=== PATIENT | female | born 2000 | race Caucasian/White ===

== ENCOUNTER 2023-08-10 10:43 | Emergency (ER) | payer OTHER, SELFPAY ==
--- NOTE | ~2023-08-10 | CT_ITS ---
Non-contrast CT scan of the Abdomen and Pelvis Clinical indication: Hematuria Technique: 2.5 mm axial scans were obtained through the abdomen and pelvis without intravenous or or al contrast. Dose reduction technique was used on this scan by utilizing automated exposure control a nd iterative reconstruction technique. The dose-length product (DLP) was 275.38 mGy-cm. Findings: Images through the lung bases reveal no abnormalities. There is no evidence of renal or ureteral calculi. The kidneys and the ureters are nondilated. The liver, spleen, pancreas, gallbladder, and adrenals appear normal. There is no aortic aneurysm. There is no evidence of bowel obstruction. Images through the pelvis were performed. There is no evidence of ascites or lymphadenopathy. Urinary bladder unremarkable. No adnexal mass seen. Impression: Unremarkable exam. Reviewed, dictated and finalized at [facility]. [employer] Impression: Unremarkable exam.
[2023-08-10 10:47] VITALS: BP 109/76; PULSE 111; RESP 18; TEMP 36.3; O2SAT 100
[2023-08-10 11:14] LABS: Basophils Percent Auto 0.3 % (0.2-1.2); Hematocrit 41.9 % (37.0-47.0); Hemoglobin 14.1 g/dL (12.0-15.0); Immature Granulocyte Absolute 0.04 K/mm3 (0.00-0.031); Immature Granulocyte Percent A 0.3 % (0-0.5); Lymphocytes Absolute Auto 1.71 K/mm3 (0.9-3.2); Lymphocytes Percent Auto 13.2 % (18.3-44.2); Mean Corpuscular HGB Conc 33.7 g/dl (32-36); Mean Corpuscular Hemoglobin 30.3 pg (26-34); Mean Corpuscular Volume 90.1 fl (80-100); Monocytes Absolute Auto 0.8 K/mm3 (0.1-0.6); Monocytes Percent Auto 6.3 % (2.6-8.5); Neutrophils Absolute Auto 10.4 K/mm3 (1.3-6.7); Neutrophils Percent Auto 79.9 % (45.5-73.1); Platelet Count Result 218 k/mm3 (150-375); Red Blood Count 4.65 M/mm3 (4.2-5.4); Red Cell Distribution Width 11.8 % (11.5-14.5)
[2023-08-10 11:24] LABS: Alanine Aminotransferase 31 U/L (6-35); Albumin Level 5.1 g/dL (3.5-5.1); Alkaline Phosphatase 59 U/L (38-126); Anion Gap 16 mmol/L (8-16); Appearance Urine Clear (Clear); Aspartate Amino Transferase 35 U/L (14-36); Bacteria Urine None Seen /hpf; Bilirubin Urine Negative (Negative); Bilirubin,Total 1.8 mg/dL (0.2-1.3); Blood Urea Nitrogen 12 mg/dL (7-17); Blood Urine 1+ (Negative); Calcium 10.1 mg/dL (8.4-10.2); Carbon Dioxide 21 mmol/L (22-30); Chloride 98 mmol/L (98-107); Color Urine Dark Yellow (Yellow); Estimated CRCL calculation 90 ml/min; Estimated Glomerular Filt Rate > 60; Glucose 90 mg/dL (65-110); Glucose Urine UA Negative (Negative); Ketones Urine 4+ mg/dL (Negative); Leukocyte Esterase Ur Negative LEU/UL (Negative); Lipase 144 U/L (23-300); Nitrate Urine Negative (Negative); Non Pathogenic Casts 0-2; Potassium 3.8 mmol/L (3.4-5.0); Protein Urine 1+ mg/dL (Negative); Sodium 135 mmol/L (137-145); Specific Grav Ur 1.031 (1.001-1.035); Squamous Epithelial Cell Urine None seen /hpf (Few); WBC Urine 0-5 /hpf; pH Urine 5.5 (5.0-9.0)
[2023-08-10 11:30] LABS: Add Urine Microscopic? YES
[2023-08-10 12:40] VITALS: BP 123/76; PULSE 91; RESP 17; O2SAT 100
--- NOTE | 2023-08-10 13:03 | ED.GENADULT ---
HPI - General Adult General Chief complaint: Nausea/Vomiting/Diarrhea Stated complaint: vomiting Time Seen by Provider: 08/10/23 11:44 History of Present Illness HPI narrative: 23-year-old female presenting to the emergency department for evaluation of nausea vomiting without diarrhea. Patient reports symptoms started a few days ago and have been persistent. patient does describe some lower abdominal pain but denies any pain with urination. Patient denies any vaginal bleeding or vaginal discharge. Related Data Allergies Allergy/AdvReac Type Severity Reaction Status Date / Time codeine AdvReac Unknown Verified 08/10/23 13:06 Review of Systems Review of Systems: All systems reviewed & are unremarkable except as noted in HPI and below Exam Narrative: APPEARANCE: Well appearing, no pain, no distress, well-nourished. HEAD: normocephalic, atraumatic. EYES: PERRLA/EOMI, conjunctivae clear. NOSE: Normal no drainage EARS:TMS clear with good light reflex. THROAT: Pharynx clear, no exudate. NECK: Supple. No adenopathy, no masses. RESPIRATORY: Airway patent, respirations nonlabored. Clear to auscultation bilaterally, no rales, rhonchi, wheezing. CARDIOVASCULAR: Regular rate and rhythm without murmurs rubs or gallops. ABDOMINAL: Soft, some suprapubic tenderness to palpation MUSCULOSKELETAL: Moves all extremities. Strength/ROM intact, No edema, No calf tenderness. NEURO: Alert. Cranial nerves II through XII intact. Good gait. Good coordination SKIN: Warm, dry. Normal Color Course Course Emergency Course: 23-year-old female presenting emergency department for evaluation nausea and vomiting. Patient was afebrile but does have a leukocytosis of 13.0. Patient has a stable hemoglobin. No significant abnormalities on the patient's CMP. Patient does have some hematuria but no other markers for infection. Patient denies any symptoms of urinary tract infection. abdominal CT was negative. Patient does feel improved with rehydration and Zofran. Patient states the abdominal pain is resolved and patient has no further nausea. Patient and family were updated on the results of the workup. Patient was encouraged to follow a clear liquid diet for the next few days and to advance as tolerated. Patient was also educated on reasons to return to the emergency department. Vital Signs Vital signs: Vital Signs Temperature 97.3 F L 08/10/23 10:47 Pulse Rate 111 H 08/10/23 10:47 Respiratory Rate 18 08/10/23 10:47 Blood Pressure 109/76 08/10/23 10:47 Pulse Oximetry 100 08/10/23 10:47 Oxygen Delivery Room Air 08/10/23 10:47 Temperature 97.3 F L 08/10/23 10:47 Pulse Rate 88 08/10/23 14:49 Respiratory Rate 20 08/10/23 14:49 Blood Pressure 121/74 08/10/23 14:49 Pulse Oximetry 99 08/10/23 14:49 Oxygen Delivery Room Air 08/10/23 10:47 Medical Decision Making Differential Diagnosis Differential Diagnosis: diverticulitis colitis, UTI, hematuria Vital Signs Vital Signs: Vital Signs Temperature 97.3 F L 08/10/23 10:47 Pulse Rate 111 H 08/10/23 10:47 Respiratory Rate 18 08/10/23 10:47 Blood Pressure 109/76 08/10/23 10:47 Pulse Oximetry 100 08/10/23 10:47 Oxygen Delivery Room Air 08/10/23 10:47 Temperature 97.3 F L 08/10/23 10:47 Pulse Rate 88 08/10/23 14:49 Respiratory Rate 20 08/10/23 14:49 Blood Pressure 121/74 08/10/23 14:49 Pulse Oximetry 99 08/10/23 14:49 Oxygen Delivery Room Air 08/10/23 10:47 Lab Data Lab results reviewed: Yes I reviewed the patient's lab results. 08/10/23 10:58 08/10/23 10:58 Labs: Lab Results 08/10/23 Range/Units 10:58 WBC 13.0 H (4.5-10.0) K/mm3 RBC 4.65 (4.2-5.4) M/mm3 Hgb 14.1 (12.0-15.0) g/dL Hct 41.9 (37.0-47.0) % MCV 90.1 (80-100) fl MCH 30.3 (26-34) pg MCHC 33.7 (32-36) g/dl RDW 11.8 (11.5-14.5) % Plt Count 218 (150-375) k/mm3 MPV 11.0 H (7.4-
[2023-08-10] MEDS: SODIUM CHLORIDE 0.9% IV 1,000 ML 999 ML IV CONT (13:15)
[2023-08-10] MEDS: ONDANSETRON INJ 4 MG/2 ML VIAL IV PUSH (13:16)
[2023-08-10 14:49] VITALS: BP 121/74; PULSE 88; RESP 20; O2SAT 99
== END 2023-08-10 14:49 | disposition home or self-care (01) ==
PROVIDERS: Emergency Provider Emergency Medicine
DX: R11.2 Nausea with vomiting, unspecified (principal); R31.9 Hematuria, unspecified
CPT/HCPCS: 36415; 74176; 80053; 81001; 81025; 83690; 85025; 96361; 96374; 99284; J2405; J7030